=== PATIENT | female | born 2000 | race Caucasian/White ===

== ENCOUNTER 2022-01-09 20:29 | Emergency (ER) | payer MEDICAID, SELFPAY ==
[2022-01-09 20:30] VITALS: BP 128/86; PULSE 104; RESP 16; TEMP 36.3; O2SAT 97; BMI 46.7
[2022-01-09 21:29] LABS: Absolute Lymphocyte Count 1.44 X10^3/uL (0.83-4.51); Absolute Neutrophil Count 11.5 X10^3/uL (2.0-7.7); Basophil# 0.03 X10^3/uL; Basophil% 0.2 % (0-1); Eosinophil# 0.16 X10^3/uL; Eosinophils% 1.1 % (0-5); Hematocrit 39.1 % (37-47); Hemoglobin 12.9 g/dL (12.0-15.0); Lymphocyte # 1.44 X10^3/ul (0.83-4.51); Lymphocyte % 10.2 % (19-41); Mean Corpuscular Hgb 26.1 pg (27.0-32.0); Monocyte# 0.98 X10^3/uL; Monocyte% 6.9 % (0-10); NRBC Flagged by Analyzer 0 % (0-5); Neutrophil # 11.53 X10^3/uL (2.7-7.7); Neutrophil % 81.3 % (47-70); Platelet Count 378 K/mm3 (150-450); RBC Distribution Width CV 13.2 % (11.6-14.6); RBC Distribution Width SD 37.5 fl (35.1-43.9); Red Blood Count 4.95 M/mm3 (4.2-5.4); White Blood Count 14.2 K/mm3 (4.4-11.0)
[2022-01-09 21:45] LABS: Anion Gap 7 (5-15); BUN 16 mg/dL (7-18); BUN/Creat Ratio 16.7 RATIO (10-20); Chloride 113 mmol/L (98-107); Creatinine, Serum 0.96 mg/dL (0.55-1.02); EST Glomerular Filtration Rate 76 mL/min (>60); Est Glom Filt Rate - Afr Amer 92 mL/min (>60); Estimated Creatinine Clearance 75.39 ml/min; Glucose 108 mg/dL (74-106); Potassium 3.8 mmol/L (3.5-5.1); Sodium Level 142 mmol/L (136-145)
[2022-01-09 22:04] LABS: Mucous, Urine 0 SEEN /hpf (<or=2+)
[2022-01-09 22:07] LABS: Color, Urine Yellow (Yellow); Glucose, Dipstick Normal (Normal); Ketone-Dipstick 5 mg/dl (Negative); Leukocyte Esterase-Dipstick 100 /ul (Negative); Nitrite-Dipstick Negative (Negative); Occult Blood-Urine 250 /ul (Negative); Protein-Dipstick 30 mg/dl (Negative); Urine Bilirubin Dipstick Negative (Negative); Urine Clarity Clear (Clear); Urine Urobilinogen Normal (Normal)
[2022-01-09 22:19] LABS: Bacteria 1+ /hpf (None Seen); Red Blood Cells-Urine 25-50 SEEN /hpf (0-5); Squamous Epithelial Cells - UA 0-5 SEEN /hpf (5-10); White Blood Cells 10-25 SEEN /hpf (0-5)
--- NOTE | 2022-01-09 22:20 | EDS_ITS ---
HPI HPI - Female History of Present Illness Chief Complaint: Flank Pain Narrative Narrative: Patient presents with right flank pain, she recently had a kidney stone and had a stent removal yesterday continues to have pain although it is better than normal. She has no fevers or chills she has no urinary symptoms. She does not know why this pain is not going away so quickly. This is similar pain that she had with her kidney stone is just not as bad. [facility] Medical History (Updated 01/09/22 @ 23:[address] Armen Gaston MD) Anxiety Asthma Kidney stone Palpitations Umbilical hernia Allergy/AdvReac Type Severity Reaction Status Date / Time codeine Allergy Hives Verified 01/09/22 20:30 Penicillins [PCN] Allergy Hives Verified 01/09/22 20:30 Social History Smoking Status: Former smoker ROS ROS ED ROS Narrative Past medical history: Reviewed Medications: Reviewed Social history: Noncontributory Review of systems: All systems negative except as indicated General: No fever Eyes: No visual changes ENT: No upper airway congestion, normal voice Neck: No neck pain Cardiovascular: No chest pain Respiratory: No shortness of breath or cough Gastrointestinal: No abdominal pain, nausea vomiting or diarrhea Genitourinary: Flank pain as in HPI. No dysuria or hematuria. Musculoskeletal: Denies myalgias no difficulty with ambulation Skin: No rash Neurological: No memory loss, confusion or any focal weakness Psych: No recent behavioral changes Hematologic: No easy bleeding or easy bruising EXAM Physical Exam Narrative Exam Narrative: Physical exam General: Patient appears relatively comfortable. She does not appear ill. She does tell me she has pain. Head: Normocephalic, Atraumatic Eyes: Conjunctiva not pale ENT: Moist mucous membranes Neck: Supple, Nontender, No lymphadenopathy Cardiovascular: Regular rate, Regular rhythm Respiratory: No distress, CTA bilaterally Abdomen: Soft, Nontender, Nondistended Back: Nontender, Normal Inspection. Right-sided CVA tenderness ill reproduced. Extremities: Nontender, No edema Skin: Normal color, No rash Neurological: Alert, Normal Strength, Normal Sensation Psychological: Normal affect Const Vital Signs: 01/09/22 20:30 01/09/22 22:01 Temperature 97.3 F L Temperature Source Temporal Pulse Rate 104 H Respiratory Rate 16 Respiratory Effort Normal Blood Pressure 128/86 H Blood Pressure Mean 100 Pulse Ox 97 Oxygen Delivery Method Room Air MDM MDM MDM Narrative Medical decision making narrative: Patient's work-up is relatively unremarkable I did get the results of her CAT scan from yesterday which showed some pelviectasis which has not really changed. She appears well. I will discharge in stable condition she is on antibiotics and opiate analgesics for home she is to call her urologist tomorrow. Lab Data Labs: Laboratory Results - last 24 hr 01/09/22 01/09/22 01/09/22 21:25 21:25 21:30 WBC 14.2 H RBC 4.95 Hgb 12.9 Hct 39.1 MCV 79.0 L MCH 26.1 L MCHC 33.0 RDW Std Deviation 37.5 RDW Coeff of Rossi 13.2 Plt Count 378 MPV 10.0 Immature Gran % (Auto) 0.300 Neut % (Auto) 81.3 H Lymph % (Auto) 10.2 L [place] % (Auto) 6.9 Eos % (Auto) 1.1 Baso % (Auto) 0.2 Absolute Neuts (auto) 11.5 H Absolute Lymphs (auto) 1.44 Nucleated RBC % 0 Sodium 142 Potassium 3.8 Chloride 113 H Carbon Dioxide 22.0 Anion Gap 7 BUN 16 Creatinine 0.96 Estim Creat Clear Calc 75.39 Est GFR (MDRD) Af Amer 92 Est GFR (MDRD) Non-Af 76 BUN/Creatinine Ratio 16.7 Glucose 108 H Calcium 9.0 Urine Color Yellow Urine Clarity Clear Urine pH 6.0 Ur Specific [place] 1.020 Urine Protein 30 H Urine Glucose (UA) Normal Urine Ketones 5 H Urine Occult Blood 250 H Urine Nitrite Negative Urine Bilirubin Negative Urine Urobilinogen Normal Ur Leukocyte Esterase 100 H Urine RBC 25-50 SEEN Urine WBC 10-25 SEEN Ur Squamous Epith Cells 0-5 SEEN Urine Bacteria 1+ Urine Mucus 0 SEEN Discharge Plan Triage Chief Complaint: Flank Pain ED Provider: Armen Gaston Dx/Rx/DC Orders Clinical Impression: Kidney calculi, Post-op pain Instructions: Treating Kidney Stones ... Primary Care Provider: Mindy James,Out of Referrals: [facility] Doctor,Out of [Primary Care Provider] - 3-5 Days Disposition Disposition: Home, Self Care
[2022-01-09] MEDS: 0.9% Normal Saline 1,000 ML 1000 ML IV (22:30)
[2022-01-09] MEDS: Ondansetron 4 MG/2 ML Vial IV (22:30)
[2022-01-09] MEDS: Ketorolac 15 MG/ML Vial IV (22:30)
[2022-01-09] MEDS: Morphine 4 MG/ML Syringe IV (22:31)
== END 2022-01-09 23:38 | disposition home or self-care (01) ==
PROVIDERS: Emergency Medicine; Emergency Provider Emergency Medicine; Visit Provider Emergency Medicine
DX: N13.2 Hydronephrosis with renal and ureteral calculous obstruction (principal); Z87.891 Personal history of nicotine dependence; G89.18 Other acute postprocedural pain; R10.9 Unspecified abdominal pain; Z87.442 Personal history of urinary calculi
CPT/HCPCS: 80048; 81001; 85025; 96361; 96374; 96375; 99282; J7030; A4216; J2405